=== PATIENT | female | born 1960 | race Caucasian/White ===

== ENCOUNTER 2019-12-09 14:06 | Outpatient (CLI) | payer BC, SELFPAY ==
--- NOTE | ~2019-12-09 | MM_ITS ---
EXAMINATION: MM screening analia BI w santhosh HISTORY: Screening TECHNIQUE: Craniocaudal and mediolateral oblique 3-D tomosynthesis images were obtained and synthetic 2-D images were generated. CAD analysis was submitted and interpreted. COMPARISON: Comparison to multiple prior studies sequentially, with oldest reviewed study dated 02/02. BREAST PARENCHYMAL COMPOSITION: The breasts are heterogeneously dense, which may obscure small masses . FINDINGS: There is no evidence of suspicious mass, calcification, or architectural distortion to sugg est malignancy in either breast. There has been no suspicious interval change. IMPRESSION: 1. No mammographic evidence of malignancy. 2. Recommend routine screening mammography in one year. BI-RADS Category 1: Negative Reviewed, dictated and finalized at location A.
== END 2019-12-09 14:07 | disposition home or self-care (01) ==
PROVIDERS: PCP Internal Medicine; Visit Provider Obstetrics & Gynecology
DX: Z12.31 Encounter for screening mammogram for malignant neoplasm of breast (principal)
CPT/HCPCS: 77063; 77067

== ENCOUNTER 2020-02-20 08:17 | Outpatient (CLI) | payer BC, SELFPAY ==
[2020-02-20 08:47] LABS: Eosinophils Absolute Auto 0.1 K/mm3 (0-0.3); Eosinophils Percent Auto 1.6 % (0-4.4); Hematocrit 39.5 % (37.0-47.0); Hemoglobin 12.4 g/dL (12.0-15.0); Immature Granulocyte Absolute 0.01 K/mm3 (0.00-0.031); Immature Granulocyte Percent A 0.2 % (0-0.5); Lymphocytes Absolute Auto 2.04 K/mm3 (0.9-3.2); Lymphocytes Percent Auto 37.2 % (18.3-44.2); Mean Corpuscular HGB Conc 31.4 g/dl (32-36); Mean Corpuscular Hemoglobin 27.2 pg (26-34); Mean Corpuscular Volume 86.6 fl (80-100); Mean Platelet Volume 10.3 fl (7.4-10.4); Monocytes Absolute Auto 0.4 K/mm3 (0.1-0.6); Monocytes Percent Auto 7.3 % (2.6-8.5); Neutrophils Absolute Auto 2.9 K/mm3 (1.3-6.7); Neutrophils Percent Auto 53.7 % (45.5-73.1); Platelet Count Result 231 k/mm3 (150-375); Red Blood Count 4.56 M/mm3 (4.2-5.4); Red Cell Distribution Width 13.9 % (11.5-14.5); White Blood Count 5.5 K/mm3 (4.5-10.0)
[2020-02-20 08:57] LABS: Alanine Aminotransferase 18 U/L (4-35); Albumin Level 4.3 g/dL (3.5-5.1); Alkaline Phosphatase 71 U/L (38-126); Anion Gap 9 mmol/L (8-16); Aspartate Amino Transferase 28 U/L (14-36); Bilirubin,Total 0.8 mg/dL (0.2-1.3); Blood Urea Nitrogen 22 mg/dL (7-17); Calcium 9.3 mg/dL (8.4-10.2); Carbon Dioxide 25 mmol/L (22-30); Chloride 105 mmol/L (98-107); Cholesterol 204 mg/dL (0-200); Estimated Glomerular Filt Rate > 60; Glucose 110 mg/dL (65-105); HDL Direct 65 mg/dL; Potassium 4.4 mmol/L (3.4-5.0); Sodium 139 mmol/L (137-145); Triglycerides 123 mg/dL (<150)
[2020-02-20 09:07] LABS: LDL Cholesterol Direct 103 mg/dL
[2020-02-20 09:29] LABS: Thyroid Stimulating Hormone 0.468 uIU/mL (0.465-4.680)
[2020-02-20 09:33] LABS: Free T4 Free Thyroxine 1.13 ng/mL (0.78-2.19)
== END 2020-02-20 08:18 | disposition home or self-care (01) ==
PROVIDERS: PCP Internal Medicine; Visit Provider Internal Medicine
DX: Z00.00 Encounter for general adult medical examination without abnormal findings (principal); R53.83 Other fatigue; E03.9 Hypothyroidism, unspecified
CPT/HCPCS: 36415; 80053; 80061; 82607; 82746; 84439; 84443; 85025

== ENCOUNTER 2020-07-06 14:45 | Outpatient (CLI) | payer OTHER, SELFPAY | END 2020-07-06 14:46 | disposition home or self-care (01) | LOC: ANHCOVIDVC 14:45 | PROVIDERS: PCP Internal Medicine | DX: Z23 Encounter for immunization (principal) | CPT/HCPCS: 0001A; 91300 ==

== ENCOUNTER 2020-07-27 14:42 | Outpatient (CLI) | payer OTHER, SELFPAY | END 2020-07-27 14:43 | disposition home or self-care (01) | LOC: ANHCOVIDVC 14:43 | PROVIDERS: PCP Internal Medicine | DX: Z23 Encounter for immunization (principal) | CPT/HCPCS: 0002A; 91300 ==

== ENCOUNTER 2021-01-04 08:08 | Outpatient (CLI) | payer OTHER, SELFPAY ==
--- NOTE | ~2021-01-04 | MM_ITS ---
EXAMINATION: MM screening analia BI w santhosh HISTORY: Screening TECHNIQUE: Craniocaudal and mediolateral oblique 3-D tomosynthesis images were obtained and synthetic 2-D images were generated. CAD analysis was submitted and interpreted. COMPARISON: Comparison to multiple prior studies sequentially, with oldest reviewed study dated 02/02. BREAST PARENCHYMAL COMPOSITION: The breasts are heterogeneously dense, which may obscure small masses . FINDINGS: There is no evidence of suspicious mass, calcification, or architectural distortion to sugg est malignancy in either breast. There has been no suspicious interval change. IMPRESSION: 1. No mammographic evidence of malignancy. 2. Recommend routine screening mammography in one year. BI-RADS Category 1: Negative Reviewed, dictated and finalized at location A.
[2021-01-04 08:35] LABS: Basophils Percent Auto 0.2 % (0.2-1.2); Eosinophils Absolute Auto 0.1 K/mm3 (0-0.3); Eosinophils Percent Auto 1.8 % (0-4.4); Hematocrit 41.4 % (37.0-47.0); Hemoglobin 13.1 g/dL (12.0-15.0); Immature Granulocyte Absolute 0.02 K/mm3 (0.00-0.031); Immature Granulocyte Percent A 0.4 % (0-0.5); Lymphocytes Absolute Auto 2.17 K/mm3 (0.9-3.2); Lymphocytes Percent Auto 39.2 % (18.3-44.2); Mean Corpuscular HGB Conc 31.6 g/dl (32-36); Mean Corpuscular Hemoglobin 27.2 pg (26-34); Mean Corpuscular Volume 86.1 fl (80-100); Mean Platelet Volume 9.4 fl (7.4-10.4); Monocytes Absolute Auto 0.4 K/mm3 (0.1-0.6); Neutrophils Absolute Auto 2.9 K/mm3 (1.3-6.7); Neutrophils Percent Auto 51.4 % (45.5-73.1); Platelet Count Result 191 k/mm3 (150-375); Red Blood Count 4.81 M/mm3 (4.2-5.4); Red Cell Distribution Width 15.1 % (11.5-14.5); White Blood Count 5.5 K/mm3 (4.5-10.0)
[2021-01-04 09:02] LABS: Alanine Aminotransferase 21 U/L (4-35); Albumin Level 4.6 g/dL (3.5-5.1); Alkaline Phosphatase 76 U/L (38-126); Anion Gap 8 mmol/L (8-16); Aspartate Amino Transferase 28 U/L (14-36); Blood Urea Nitrogen 17 mg/dL (7-17); Calcium 9.5 mg/dL (8.4-10.2); Carbon Dioxide 26 mmol/L (22-30); Chloride 103 mmol/L (98-107); Cholesterol 246 mg/dL (0-200); Estimated Glomerular Filt Rate > 60; Glucose 112 mg/dL (65-110); HDL Direct 76 mg/dL; Sodium 137 mmol/L (137-145); Triglycerides 56 mg/dL (<150)
[2021-01-04 09:06] LABS: Hemoglobin A1C 5.8 % (<5.7)
[2021-01-04 09:14] LABS: LDL Cholesterol Direct 117 mg/dL
[2021-01-04 09:32] LABS: Thyroid Stimulating Hormone 0.603 uIU/mL (0.465-4.680)
[2021-01-04 10:13] LABS: Free T4 Free Thyroxine 1.18 ng/mL (0.78-2.19)
[2021-01-04 10:14] LABS: Folic Acid > 20.0 ng/mL (2.76->20)
== END 2021-01-04 08:09 | disposition home or self-care (01) ==
LOC: ANHIMG 08:09
PROVIDERS: PCP Internal Medicine; Visit Provider Internal Medicine
DX: Z12.31 Encounter for screening mammogram for malignant neoplasm of breast (principal); E03.9 Hypothyroidism, unspecified; R73.9 Hyperglycemia, unspecified; R53.83 Other fatigue; E78.5 Hyperlipidemia, unspecified
CPT/HCPCS: 36415; 77063; 77067; 80053; 80061; 82607; 82746; 83036; 84439; 84443; 85025

== ENCOUNTER 2022-01-16 07:35 | Outpatient (CLI) | payer OTHER, SELFPAY ==
[2022-01-16 08:45] LABS: Basophils Percent Auto 0.2 % (0.2-1.2); Eosinophils Absolute Auto 0.1 K/mm3 (0-0.3); Eosinophils Percent Auto 1.1 % (0-4.4); Hematocrit 41.1 % (37.0-47.0); Hemoglobin 13.2 g/dL (12.0-15.0); Lymphocytes Absolute Auto 2.27 K/mm3 (0.9-3.2); Mean Corpuscular HGB Conc 32.1 g/dl (32-36); Mean Corpuscular Hemoglobin 25.8 pg (26-34); Mean Corpuscular Volume 80.4 fl (80-100); Mean Platelet Volume 10.4 fl (7.4-10.4); Monocytes Absolute Auto 0.4 K/mm3 (0.1-0.6); Monocytes Percent Auto 7.6 % (2.6-8.5); Neutrophils Absolute Auto 2.9 K/mm3 (1.3-6.7); Neutrophils Percent Auto 51.1 % (45.5-73.1); Platelet Count Result 221 k/mm3 (150-375); Red Blood Count 5.11 M/mm3 (4.2-5.4); White Blood Count 5.7 K/mm3 (4.5-10.0)
[2022-01-16 10:20] LABS: Hemoglobin A1C 5.5 % (<5.7)
[2022-01-16 10:25] LABS: Alanine Aminotransferase 21 U/L (6-35); Albumin Level 4.7 g/dL (3.5-5.1); Alkaline Phosphatase 59 U/L (38-126); Anion Gap 11 mmol/L (8-16); Aspartate Amino Transferase 27 U/L (14-36); Bilirubin,Total 0.9 mg/dL (0.2-1.3); Blood Urea Nitrogen 17 mg/dL (7-17); Calcium 9.7 mg/dL (8.4-10.2); Carbon Dioxide 28 mmol/L (22-30); Chloride 102 mmol/L (98-107); Cholesterol 183 mg/dL (0-200); Estimated Glomerular Filt Rate > 60; Glucose 110 mg/dL (65-110); HDL Direct 61 mg/dL; Potassium 4.1 mmol/L (3.4-5.0); Sodium 141 mmol/L (137-145); Triglycerides 66 mg/dL (<150)
[2022-01-16 10:41] LABS: LDL Cholesterol Direct 84 mg/dL
[2022-01-16 10:53] LABS: Thyroid Stimulating Hormone 0.184 uIU/mL (0.465-4.680)
[2022-01-16 11:08] LABS: Free T4 Free Thyroxine 1.81 ng/mL (0.78-2.19)
[2022-01-16 11:33] LABS: Folic Acid > 20.0 ng/mL (2.76->20)
== END 2022-01-16 07:36 | disposition home or self-care (01) ==
LOC: ANHLAB 07:36
PROVIDERS: PCP Internal Medicine; Visit Provider Internal Medicine
DX: E78.5 Hyperlipidemia, unspecified (principal); R73.9 Hyperglycemia, unspecified; E03.9 Hypothyroidism, unspecified; R53.83 Other fatigue
CPT/HCPCS: 36415; 80053; 80061; 82607; 82746; 83036; 84439; 84443; 85025

== ENCOUNTER 2022-02-25 08:18 | Outpatient (CLI) | payer OTHER, SELFPAY ==
--- NOTE | ~2022-02-25 | MM_ITS ---
EXAMINATION: MM screening analia BI w santhosh HISTORY: Screening mammogram TECHNIQUE: Craniocaudal and mediolateral oblique 3-D tomosynthesis images were obtained and synthetic 2-D images were generated. CAD analysis was submitted and interpreted. COMPARISON: 01/04/2021, 12/09/2019, 08/13/2018 BREAST PARENCHYMAL COMPOSITION: The breasts are heterogeneously dense, which may obscure small masses . FINDINGS: RIGHT BREAST: No suspicious mass, calcification, or architectural distortion are identified to sugges t malignancy. There has been no suspicious interval change. LEFT BREAST: There is a possible mass in the subareolar aspect of the left breast. IMPRESSION: 1. Possible left breast mass 2. Additional mammographic views and possible breast ultrasound are recommended. BI-RADS Category 0: Incomplete: Needs additional imaging evaluation. Reviewed, dictated and finalized at location A. IMPRESSION: 1. Possible left breast mass 2. Additional mammographic views and possible breast ultrasound are recommended . BI-RADS Category 0: Incomplete: Needs additional imaging evaluation.
== END 2022-02-25 08:19 | disposition home or self-care (01) ==
PROVIDERS: PCP Internal Medicine; Visit Provider Obstetrics & Gynecology
DX: Z12.31 Encounter for screening mammogram for malignant neoplasm of breast (principal); R92.8 Other abnormal and inconclusive findings on diagnostic imaging of breast
CPT/HCPCS: 77063; 77067

== ENCOUNTER 2022-03-18 10:34 | Outpatient (CLI) | payer OTHER, SELFPAY ==
--- NOTE | ~2022-03-18 | MMUS_ITS ---
EXAMINATION: MM diagnostic analia LT w santhosh, US breast LT complete HISTORY: Follow-up left breast asymmetry/possible mass TECHNIQUE: Additional 3-D tomosynthesis images of the left breast were performed and synthetic 2-D im ages were generated. CAD analysis was submitted and interpreted. High resolution complete left breast ultrasound was performed. COMPARISON: 02/25/2022, 01/04/2021 and 12/08/2020 BREAST PARENCHYMAL COMPOSITION: The breasts are heterogeneously dense, which may obscure small masses FINDINGS: MAMMOGRAPHIC FINDINGS: No discrete mass, architectural distortion or suspicious calcifications are identified in the left br east. ULTRASOUND: Complete left breast US of all 4 quadrants of the breasts and retroareolar region was reviewed: At 12 :00, 2 cm from the nipple there is an oval isoechoic mass measuring 7 x 4 x 7 mm without internal vas cularity or posterior features. At 7:00, 5 cm from the nipple, there is a hypoechoic oval mass with l ow level internal echoes, circumscribed margins, no internal vascularity, parallel orientation and no posterior features. IMPRESSION: 1. Isoechoic solid appearing mass of the left breast at 12:00, 2 cm from the nipple. Probable benign mass at 7:00, 5 cm from the nipple measuring 5 mm. 2. Ultrasound-guided left breast biopsy of isoechoic mass at 12:00, 2 cm from the nipple recommended. Six-month follow-up of hypoechoic mass at 7:00 recommended. BI-RADS category 4, suspicious findings. Reviewed, dictated and finalized at location A. EATION THERAPIST IMPRESSION: 1. Isoechoic solid appearing mass of the left breast at 12:00, 2 cm from the ni pple. Probable benign mass at 7:00, 5 cm from the nipple measuring 5 mm. 2. Ultrasound-guided left breast biopsy of isoechoic mass at 12:00, 2 cm from t he nipple recommended. Six-month follow-up of hypoechoic mass at 7:00 recommend ed. BI-RADS category 4, suspicious findings.
[2022-03-18 11:25] LABS: Free T4 Free Thyroxine 1.08 ng/mL (0.78-2.19)
== END 2022-03-18 10:35 | disposition home or self-care (01) ==
LOC: ANHIMG 10:34
PROVIDERS: PCP Internal Medicine; Visit Provider Obstetrics & Gynecology
DX: E03.9 Hypothyroidism, unspecified (principal); N63.20 Unspecified lump in the left breast, unspecified quadrant; R92.8 Other abnormal and inconclusive findings on diagnostic imaging of breast
CPT/HCPCS: 36415; 76641; 77061; 77065; 84439; 84443; G0279

== ENCOUNTER 2022-12-26 07:34 | Outpatient (CLI) | payer OTHER, SELFPAY ==
[2022-12-26 07:49] LABS: Basophils Percent Auto 0.2 % (0.2-1.2); Eosinophils Absolute Auto 0.1 K/mm3 (0-0.3); Eosinophils Percent Auto 2.2 % (0-4.4); Hematocrit 38.1 % (37.0-47.0); Hemoglobin 11.7 g/dL (12.0-15.0); Immature Granulocyte Absolute 0.02 K/mm3 (0.00-0.031); Immature Granulocyte Percent A 0.4 % (0-0.5); Lymphocytes Absolute Auto 1.93 K/mm3 (0.9-3.2); Lymphocytes Percent Auto 38.3 % (18.3-44.2); Mean Corpuscular HGB Conc 30.7 g/dl (32-36); Mean Corpuscular Hemoglobin 26.4 pg (26-34); Mean Platelet Volume 9.4 fl (7.4-10.4); Monocytes Absolute Auto 0.4 K/mm3 (0.1-0.6); Monocytes Percent Auto 6.9 % (2.6-8.5); Neutrophils Absolute Auto 2.6 K/mm3 (1.3-6.7); Platelet Count Result 215 k/mm3 (150-375); Red Blood Count 4.43 M/mm3 (4.2-5.4); Red Cell Distribution Width 15.2 % (11.5-14.5)
[2022-12-26 07:59] LABS: Alanine Aminotransferase 24 U/L (6-35); Albumin Level 4.4 g/dL (3.5-5.1); Alkaline Phosphatase 61 U/L (38-126); Anion Gap 3 mmol/L (8-16); Aspartate Amino Transferase 30 U/L (14-36); Bilirubin,Total 0.9 mg/dL (0.2-1.3); Blood Urea Nitrogen 19 mg/dL (7-17); Calcium 9.1 mg/dL (8.4-10.2); Carbon Dioxide 32 mmol/L (22-30); Chloride 102 mmol/L (98-107); Cholesterol 249 mg/dL (0-200); Estimated Glomerular Filt Rate > 60; Glucose 102 mg/dL (65-110); HDL Direct 85 mg/dL; Potassium 4.2 mmol/L (3.4-5.0); Sodium 137 mmol/L (137-145); Triglycerides 73 mg/dL (<150)
[2022-12-26 08:23] LABS: LDL Cholesterol Direct 120 mg/dL
[2022-12-26 09:00] LABS: Free T4 Free Thyroxine 1.27 ng/mL (0.78-2.19)
[2022-12-26 09:10] LABS: Folic Acid > 20.0 ng/mL (2.76->20)
[2022-12-26 12:09] LABS: Hemoglobin A1C 5.5 % (<5.7)
== END 2022-12-26 07:35 | disposition home or self-care (01) ==
PROVIDERS: PCP Internal Medicine; Visit Provider Internal Medicine
DX: E03.9 Hypothyroidism, unspecified (principal); E78.5 Hyperlipidemia, unspecified; R53.83 Other fatigue; R73.9 Hyperglycemia, unspecified
CPT/HCPCS: 36415; 80053; 80061; 82607; 82746; 83036; 84439; 84443; 85025

== ENCOUNTER 2024-03-01 08:27 | Outpatient (CLI) | payer OTHER, SELFPAY ==
[2024-03-01 09:30] LABS: Hematocrit 42.8 % (37.0-47.0); Hemoglobin 13.6 g/dL (12.0-15.0); Mean Corpuscular HGB Conc 31.8 g/dl (32-36); Mean Corpuscular Hemoglobin 28.5 pg (26-34); Mean Corpuscular Volume 89.5 fl (80-100); Mean Platelet Volume 9.8 fl (7.4-10.4); Platelet Count Result 221 k/mm3 (150-375); Red Blood Count 4.78 M/mm3 (4.2-5.4); Red Cell Distribution Width 12.4 % (11.5-14.5); White Blood Count 6.2 K/mm3 (4.5-10.0)
[2024-03-01 09:55] LABS: Alanine Aminotransferase 20 U/L (6-35); Albumin Level 4.6 g/dL (3.5-5.1); Alkaline Phosphatase 79 U/L (38-126); Anion Gap 7 mmol/L (4-12); Aspartate Amino Transferase 25 U/L (14-36); Bilirubin,Total 1.1 mg/dL (0.2-1.3); Blood Urea Nitrogen 21 mg/dL (7-17); Calcium 9.2 mg/dL (8.4-10.2); Carbon Dioxide 28 mmol/L (22-30); Chloride 103 mmol/L (98-107); Cholesterol 243 mg/dL (0-200); Estimated Glomerular Filt Rate > 60; Glucose 99 mg/dL (65-110); HDL Direct 73 mg/dL; Hemoglobin A1C 5.8 % (<5.7); Potassium 4.2 mmol/L (3.4-5.0); Sodium 138 mmol/L (137-145); Triglycerides 99 mg/dL (<150)
[2024-03-01 10:06] LABS: LDL Cholesterol Direct 114 mg/dL
[2024-03-01 10:27] LABS: Free T4 Free Thyroxine 1.16 ng/mL (0.78-2.19)
== END 2024-03-01 08:28 | disposition home or self-care (01) ==
LOC: ANHLAB 08:29
PROVIDERS: PCP Nurse Practitioner; Visit Provider Nurse Practitioner
DX: E03.9 Hypothyroidism, unspecified (principal); E78.5 Hyperlipidemia, unspecified; R73.9 Hyperglycemia, unspecified; Z79.899 Other long term (current) drug therapy
CPT/HCPCS: 36415; 80053; 80061; 83036; 84439; 84443; 85027

== ENCOUNTER 2025-03-07 14:39 | Outpatient (CLI) | payer OTHER, SELFPAY ==
--- OUTSIDE RECORDS SUMMARY | 2017-05-12 | XMS_ITS | Encounter Summary ---
Author Organization [facility] Healthcare Address [address] [place] [address] Care Team Providers Care Synthetic Filament Extruder Name Role Phone Unavailable Primary Care Provider Unavailabl e Reason for Visit * Diagnostic Imaging (Routine) - Closed Specialty Diagnoses / Procedures Referred By Reji harrell Referred To Contact Procedures Breast Imaging Screening Outside Reference Jhon Rangel NP Phone: tel: fax: Referral ID Status Reason Start Date Expiration Date Visits Re quested Visits Authorized [id number] Closed 03/25/2022 04/24/2023 1 1 Encounter Details Date Type Department Care Team (Late st Contact Info) Description 05/12/2017 Hospital Encounter [facility] [address] [place] [address] [phone] Social History Tobacco Use Types Packs/Day Years Used Date Smoking Tobacco: Never Smokeless Tobacco: Never AUDIT-C Answer Date Recorded Q1: How often do you have a drink containing alc ohol? 2-4 times a month 04/22/2022 Average Number of Drinks Not on file 022 Frequency of Binge Drinking Not on file 04/04 Comments Unknown Sex and Gender Information Value Date Recorded Sex Assigned at Not on file Legal Sex Female 4:32 AM ASSOCIATE ACCOUNT EXECUTIVE Gender Identity Female 03/20/2022 8:59 AM ASSOCIATE ACCOUNT EXECUTIVE Sexual Orientation Straight 05/31/2021 9: 25 AM ASSOCIATE ACCOUNT EXECUTIVE documented as of this encounter Functional Status documented as of this encounter Plan of Treatment Not on file documented as of this encounter Procedures Procedure Name Priority Date/Time Associated Diagnosis Comments BREAST IMAGING MG SCREENING OUTSIDE REFERENCE Routine 05/12/2017 12:00 AM ASSOCIATE ACCOUNT EXECUTIVE documented in this encounter Results * Breast Imaging Screening Outside Reference (05/12/2017 12:00 AM ASSOCIATE ACCOUNT EXECUTIVE) Impressions [facility] - 03/25/2022 10:49 AM ASSOCIATE ACCOUNT EXECUTIVE These images are for Reference purposes only and have not been reviewed by [facility] Radiology. There will be no report generated by a [facility] Radiologist. Narrative [facility] - 03/25/2022 10:49 AM ASSOCIATE ACCOUNT EXECUTIVE EXAMINATION: Images For Reference Purposes Only us Jhon Rangel NP IMG MAMMO PROCEDURES Final Result [facility] documented in this encounter Visit Diagnoses Not on filedocumented in this encounter
--- OUTSIDE RECORDS SUMMARY | 2018-08-12 23:00 | XMS_ITS | Encounter Summary ---
Author Organization [facility] Healthcare Address [address] [place] [address] Care Team Providers Care Assistant Reading Teacher Name Role Phone Unavailable Primary Care Provider Unavailabl e Reason for Visit * Diagnostic Imaging (Routine) - Closed Specialty Diagnoses / Procedures Referred By Reji harrell Referred To Contact Procedures Breast Imaging Screening Outside Reference Jhon Rangel NP Phone: tel: fax: Referral ID Status Reason Start Date Expiration Date Visits Re quested Visits Authorized [id number] Closed 03/25/2022 04/24/2023 1 1 Encounter Details Date Type Department Care Team (Late st Contact Info) Description 08/13/2018 Hospital Encounter [facility]) [address] [place] [address] [phone] Social History Tobacco Use Types Packs/Day Years [...] on file Legal Sex Female 4:32 AM SIZING SPRAYER Gender Identity Female 03/20/2022 8:59 AM SIZING SPRAYER Sexual Orientation Straight 05/31/2021 9: 25 AM SIZING SPRAYER documented as of this encounter Functional Status documented as of this encounter Plan of Treatment Not on file documented as of this encounter Procedures Procedure Name Priority Date/Time Associated Diagnosis Comments BREAST IMAGING MG SCREENING OUTSIDE REFERENCE Routine 08/13/2018 12:00 AM CDT documented in this encounter Results * Breast Imaging Screening Outside Reference (08/13/2018 12:00 AM CDT) Impressions [facility] - 03/25/2022 10:49 AM SIZING SPRAYER These images are for Reference purposes only and have not been reviewed by [facility] Radiology. There will be no report generated by a [facility] Radiologist. Narrative [facility] - 03/25/2022 10:49 AM SIZING SPRAYER EXAMINATION: Images For Reference Purposes Only us Jhon Rangel NP IMG MAMMO PROCEDURES Final Result [facility] documented in this encounter Visit Diagnoses Not on filedocumented in this encounter
--- OUTSIDE RECORDS SUMMARY | 2019-12-08 23:00 | XMS_ITS | Encounter Summary ---
Author Organization [facility] Healthcare Address [address] [place] [address] Care Team Providers Care Zipper Cutter Name Role Phone Unavailable Primary Care Provider Unavailabl e Reason for Visit * Diagnostic Imaging (Routine) - Closed Specialty Diagnoses / Procedures Referred By Reji harrell Referred To Contact Procedures Breast Imaging Screening Outside Reference Jhon Rangel NP Phone: tel: fax: Referral ID Status Reason Start Date Expiration Date Visits Re quested Visits Authorized [id number] Closed 03/25/2022 04/24/2023 1 1 Encounter Details Date Type Department Care Team (Late st Contact Info) Description 12/09/2019 Hospital Encounter [facility] [address] [place] [address] [phone] Social History Tobacco Use Types Packs/Day Years [...] on file Legal Sex Female 4:32 AM WINCH STRIPPER Gender Identity Female 03/20/2022 8:59 AM WINCH STRIPPER Sexual Orientation Straight 05/31/2021 9: 25 AM WINCH STRIPPER documented as of this encounter Functional Status documented as of this encounter Plan of Treatment Not on file documented as of this encounter Procedures Procedure Name Priority Date/Time Associated Diagnosis Comments BREAST IMAGING MG SCREENING OUTSIDE REFERENCE Routine 12/09/2019 12:00 AM CDT documented in this encounter Results * Breast Imaging Screening Outside Reference (12/09/2019 12:00 AM CDT) Impressions [facility] - 03/25/2022 10:50 AM WINCH STRIPPER These images are for Reference purposes only and have not been reviewed by [facility] Radiology. There will be no report generated by a [facility] Radiologist. Narrative [facility] - 03/25/2022 10:50 AM WINCH STRIPPER EXAMINATION: Images For Reference Purposes Only us Jhon Rangel NP IMG MAMMO PROCEDURES Final Result [facility] documented in this encounter Visit Diagnoses Not on filedocumented in this encounter
--- NOTE | ~2025-03-07 | DEXA_ITS ---
Bone Density Report Name: MARILEE BRITO Age: 64 Sex: Female Ethnicity: White Date of : 1960 Indication: postmenopausal; screening for osteoporosis; Referring Provider: CAROLINA TALAVERA Study: Bone densitometry was performed. Exam Date: March 07, 2025 Accession number: [id number] Bone Density: Region BMD T-score Z-score Classification AP Spine(L1-L4) 0.951 -0.9 0.7 Normal Femoral Neck (Left) 0.781 -0.6 0.8 Normal Total Hip (Left) 0.950 0.1 1.2 Normal Femoral Neck (Right) 0.543 -2.8 -1.4 Osteoporosis Total Hip (Right) 0.680 -2.1 -1.1 Osteopenia Total Hip Mean 0.815 -1.0 0.1 Normal World Health Organization criteria for BMD impression classify patients as: Normal (T-score at or above -1.0), Osteopenia (T-score between -1.0 and -2.5), or Osteoporosis (T-score at or below -2.5). 10-year Fracture Risk: FRAX not reported because: Some T-score for Spine Total or Hip Total or Femoral Neck at or below -2.5 Impression: The patient has osteoporosis, based on the Right Femoral Neck T-score. Discussion: INCREASED RISK OF FRACTURE. BONE DENSITY IS UNDESIRABLY LOW AT ONE OR MORE SKELETAL SITES, CONSISTENT WITH POSTMENOPAUSAL OSTEOPOROSIS. This patient's lowest T-score meets the World Health Organization's (WHO) criteria for osteoporosis at one or more sites (T-score -2.5 or below). In untreated patients, the risk of osteoporotic fracture increases approximately two-fold for each 1.0 SD decrease in T-score. Low bone density is not the only risk factor for fracture; also consider factors such as patient's age, frailty or poor health, risk of falling, risk of injury, previous osteoporotic fracture, family history of osteoporosis, cigarette smoking, low body weight, etc. Not everyone with low bone mineral density has osteoporosis; osteomalacia and other metabolic bone disorders should also be considered. Patients who have osteoporosis should be evaluated for specific diseases and conditions (secondary causes) that may cause or contribute to bone loss. The [place] [employer]ocrinologists (AACE) and National Osteoporosis Foundation (NOF) recommend pharmacologic intervention for all postmenopausal women whose T-score is in this range. The patient should follow a healthful lifestyle (good nutrition with adequate calcium and vitamin D, and appropriate weight-bearing exercise). Follow-Up: Consider a repeat BMD and Vertebral Fracture Assessment (VFA) exam in 2 years or sooner if medically necessary, to reassess this patient's status. Reported by: ERWIN on 03/07/2025 3:31:00 PM. Reviewed, dictated and finalized at location A.
--- OUTSIDE RECORDS SUMMARY | 2025-03-07 16:11 | XMS_ITS | Clinical Summary ---
Author Organization [facility] Address [address] [place] [address] Care Team Providers Care Miter Saw Operator Name Role Phone Unavailable Primary Care Provider Unavailabl e Social History Tobacco Use Types Packs/Day Years Used Date Smoking Tobacco: Never Assessed Comments Unknown Sex and Gender Information Value Date Recorded Sex Assigned at Not on file Legal Sex Female 1:58 PM CDT Gender Identity Not on file Sexual Orientation Not on file Plan of Treatment Health Maintenance Due Date Last Done Comments Cervical Cancer Screening Pa p Smear (Age 30 to 64) Every 3 Years 1962 Colorectal Cancer Screening Colonoscopy (10 Years) 1962 Annual Physical 1965 Hepatitis C 1980 DTaP, Tdap and Td Vaccines ( 1 - Tdap) 1981 Cervical Cancer Screening Pa p with HPV Testing (Age 30 to 64) Every 5 Years 1992 Cervical Cancer Screening with HPV 1992 Mammogram Screening 2002 Pneumococcal Vaccine: 50+ Ye ars (1 of 1 - PCV) 2012 Zoster Vaccines (1 of 2) 2012 COVID-19 Vaccine (2024-2 6 season) 2025 Influenza Adult (#1) 2025 RSV Immunization or 60+ Years (1 - 1-dose 75+ series) 2037 Hepatitis A Vaccines Aged Out No long er eligible based on patient's age to complete this topic Meningococcal B Vaccine Aged Out No l onger eligible based on patient's age to complete this topic Meningococcal Vaccine Aged Out No gorge rudy eligible based on patient's age to complete this topic RSV Immunizations Under 20 Months Aged Out No longer eligible based on patient's age to complete this topic
--- OUTSIDE RECORDS SUMMARY | 2025-03-07 16:11 | XMS_ITS | Clinical Summary ---
Author Organization [facility] Address [facility] [place] [address] Care Team Providers Care Soap Tender Name Role Phone Tio Kumari MD Primary Care Provider [phone] Lb Jennings MD Unavailable [phone] Allergies No known active allergies Medications levothyroxine (SYNTHROID) 112 mcg tablet levothyroxine 112 mcg tablet Active acetaminophen (TYLENOL ORAL) Take by mouth A ctive aspirin 325 mg enteric coated tablet Take 325 mg by mouth daily Active gabapentin (NEURONTIN) 300 mg capsule Take 300 mg by mouth daily Active levothyroxine (SYNTHROID) 100 mcg tablet Take 100 mcg by mouth daily 2 Active TURMERIC ORAL Take by mouth daily Active Active Problems Problem Noted Date Diagnosed Date Mass of left breast 05/07/2022 Surgical History Surgery Date Site/Laterality Comments ND TOTAL ABDOMINAL HYSTERECT W/WO RMVL TUBE OVARY Hysterectomy - uterine fibroid tumors (Added by TW Conv) CARPAL TUNNEL RELEASE APPENDECTOMY HIP ARTHROSCOPY W/ LABRAL REPAIR Medical History Medical History Date Comments Personal history of other en docrine, nutritional and metabolic disease History of hypothyro idism - (Added by TW Conv) Personal history of other di seases of the nervous system and sense organs History of periphe ral neuropathy - bilateral feet (Added by TW Conv) Personal history of other di seases of the digestive system History of irritable bowel s yndrome - (Added by TW Conv) Thyroid disease Arthritis Family History Medical History Relation Name Comments Ovarian cancer Mother Melanoma Mother's Sister Prostate cancer Paternal Grandfather Relation Name Status Comments Mother Mother's Sister Paternal Grandfather Social History Tobacco Use Types Packs/Day Years [...] on file Legal Sex Female 4:32 AM REGRINDER OPERATOR Gender Identity Female 03/20/2022 8:59 AM REGRINDER OPERATOR Sexual Orientation Straight 05/31/2021 9: 25 AM REGRINDER OPERATOR Last Filed Vital Signs Vital Sign Reading Time Taken Comments Blood Pressure 107/73 04/22/2022 9:10 AM REGRINDER OPERATOR Pulse 77 04/22/2022 9:10 AM REGRINDER OPERATOR Temperature 36.8 C (98.3 F) 04/22/2022 9:10 AM REGRINDER OPERATOR Respiratory Rate 20 04/22/2022 9:10 AM REGRINDER OPERATOR Oxygen Saturation 97% 04/22/2022 9:1 0 AM REGRINDER OPERATOR Inhaled Oxygen Concentration - - Weight 63.4 kg (139 lb 12.8 oz) 022 9:10 AM REGRINDER OPERATOR with shoes Height 162.6 cm (5' 4) 05/31/2021 10:5 7 AM REGRINDER OPERATOR Body Mass Index 24 05/31/2021 10:57 AM REGRINDER OPERATOR Plan of Treatment Health Maintenance Due Date Last Done Comments Breast Cancer Screening-Mammogram 1962 Cervical Cancer Screening 1962 Colon Cancer Screening-Colonoscopy 1962 Depression Screening 1962 Hepatitis C Screening 1962 Hepatitis B Screening 1980 Regular Well Visit/Exam 18-64 1980 Covid-19 Vaccine (2024-2 6 season) 2025 02/05/2021, 07/27/2020, 07/06/2020 Influenza Vaccine (#1) 2025 02/18/2020 DTaP/Tdap/Td Vaccine (2 - Td or Tdap) 02/26/2027 02/26/2017 Zoster Vaccine Completed 04/23/2020, 02/20/2020 Pneumococcal vaccine <65 Aged Out No longer eligible based on patient's age to complete this topic Insurance [facility] Care Teams Soap Tender Relationship Specialty Start Date End Date Tio Kumari MD [address] [place], [place] [id number] PCP - General Internal Medicine 03/14/21 Lb Jennings MD [address] [place] [address] Referring Physician Obstetrics and Gynecology 03/20/22
--- OUTSIDE RECORDS SUMMARY | 2025-03-07 16:11 | XMS_ITS | Clinical Summary ---
Author Organization [facility] Address [address] [place] [address] Care Team Providers Care Manager Culture Name Role Phone Unavailable Primary Care Provider Unavailabl e Source Comments [facility],non-owned Affiliates and Associated Physician Practices is amultiple site organization consisting of ambulatory clinics and hospital sitesin [place], [place], [place] and [place]. This disclosure is being madepursuant to the Care Everywhere program and may not contain all information available regarding this patient. Last updated 18.[facility] Encounters Date Type Department Care Team Description 02/23/2025 10:25 AM CDT - 02/23/2025 11:59 PM CDT Hospital Encounter [facility] [address] [place], [place] [address] [address] Lb Jennings MD Discharge Disposition: Home or Self Care 02/21/2025 1:31 PM CDT - 02/21/2025 11:59 PM CDT Hospital Encounter [facility] - Outside Imaging Discharge Disposition: Home or Self Care 02/21/2025 1:30 PM CDT Hospital Encounter [facility] - Outside Imaging Discharge Disposition: Home or Self Care 02/21/2025 1:29 PM CDT Hospital Encounter [facility] - Outside Imaging Discharge Disposition: Home or Self Care 02/21/2025 1:25 PM CDT - 02/21/2025 1:28 PM CDT Hospital Encounter [facility] - Outside Imaging Discharge Disposition: Home or Self Care from Last 3 Months Family History Medical History Relation Name Comments Cancer - Skin, Melanoma Maternal Aunt Janessa Cancer - Ovarian Mother Aster Cancer - Prostate Other David paternal g randfather Cancer - Breast Neg Hx Relation Name Status Comments Maternal Aunt Janessa Mother Aster Other David Social History Tobacco Use Types Packs/Day Years Used Date Smoking Tobacco: Never Assessed Comments No Sex and Gender Information Value Date Recorded Sex Assigned at Female 03/31/2022 2:15 PM EXPORT DOCUMENTS CLERK Legal Sex Female 6:28 AM EXPORT DOCUMENTS CLERK Gender Identity Female 03/31/2022 2:15 PM EXPORT DOCUMENTS CLERK Sexual Orientation Straight 03/31/2022 2: 15 PM EXPORT DOCUMENTS CLERK Last Filed Vital Signs Vital Sign Reading Time Taken Comments Blood Pressure 119/79 02/26/2017 11:00 PM CDT Pulse 82 02/26/2017 11:00 PM CDT Temperature 37.8 C (100 F) 02/26/2017 6:39 PM CDT Respiratory Rate 14 02/26/2017 11:00 PM CDT Oxygen Saturation 97% 02/26/2017 11:00 PM CDT Inhaled Oxygen Concentration - - Weight 72.6 kg (160 lb) 02/23/2025 10:36 AM CDT Height 162.6 cm (5' 4) 02/23/2025 10:36 AM CDT Body Mass Index 27.46 02/23/2025 10:36 AM CDT Plan of Treatment Health Maintenance Due Date Last Done Comments COLON MONITORING 1962 COLONOSCOPY - COLON CA SCREENING 1962 CT COLONOGRAPHY - COLON CA SCREENING 1962 FIT - COLON CA SCREENING 1962 FLEX SIG - COLON CA SCREENING 1962 LIPID TESTING 1962 HIV SCREENING 1977 HEPATITIS C SCREENING 07/10/1980 DTAP/TDAP/TD VACCINES (1 - Tdap) 1981 PAP SMEAR 07/16/1983 PNEUMOCOCCAL VACCINE 50+ (1 of 1 - PCV) 2012 ZOSTER VACCINE (1 of 2) 2012 DEPRESSION SCREENING 05/04/2024 COVID-19 VACCINE (3 - 2024-2 6 season) 2025 07/27/2020, 07/06/2020 INFLUENZA VACCINE (#1) 2025 02/18/2020 MAMMOGRAM 02/23/2027 02/23/2025, 02/18/2024, 02/12/2023 COLOGUARD (AGES 45-75) - COL ON CA SCREENING 10/22/2027 10/21/2024 Colorectal Cancer Screening 10/22/2027 Respiratory Syncytial Virus (RSV) Vaccine Pt: or over 60 yrs (1 - 1-dose 75+ series) 2037 HEPATITIS B VACCINE Aged Out No longe r eligible based on patient's age to complete this topic HIB VACCINE Aged Out No longer eligi ble based on patient's age to complete this topic HPV VACCINE Aged Out No longer eligi ble based on patient's age to complete this topic MENINGOCOCCAL (Group B) VACCINE SHARED DECISION-MAKING Aged Out No longer eligible based on patient's age to complete this topic MENINGOCOCCAL GROUPS A/C/Y/W VACCINE Aged Out No longer eligible b ased on patient's age to complete this topic Procedures Procedure Name Priority Date/Time Associated Diagnosis Comments MAMMO BILAT SCREENING W GEMMA Routine 02/23/2025 10:47 AM CDT Encounter for screening mammogram for malignant neoplasm of breast from Last 3 Months Results * Mammo Bilat Screening W Gemma (02/23/2025 10:47 AM CDT) Anatomical Region Laterality Modality Breast Bilateral Mammography 02/23/2025 11:3 4 AM CDT Impressions 02/23/2025 11:36 AM CDT IMPRESSION: No mammographic evidence of malignancy in either breast. ASSESSMENT: BI-RADS CATEGORY 1: NEGATIVE RECOMMENDATION: Bilateral screening mammogram in one year. Thank you for allowing us to participate in the care of your patient. [facility] utilizes Personal Estate Manager as a reminder system to notify patients of their next recommended mammogram. > Interpreting Provider: Brooke Zhang MD on 02/23/2025 11:36 AM Narrative 02/23/2025 11:36 AM CDT EXAMINATION: Digital screening mammogram. Low-dose full-field digital breast tomosynthesis examination was performed with synthetic 2D images. Computer assisted detection was utilized. DATE: 02/23/2025 10:48 AM PRIOR: 02/18/2024 and prior mammograms dating back to 2020. BREAST PARENCHYMAL COMPOSITION: Category D: The breasts are extremely dense which lowers the sensitivity of mammography. FINDINGS: No suspicious masses, areas of architectural distortion or microcalcifications are evident on synthetic 2D mammogram or tomosynthesis images. There has been no significant interval change since the prior examination. us Lb Jennings MD MAMMO ORDERABLES Final Result from Last 3 Months Insurance
--- OUTSIDE RECORDS SUMMARY | 2025-03-07 16:11 | XMS_ITS | Encounter Summary ---
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 Name Role Phone Unavailable Primary Care Provider Unavailabl e Encounter Details Date Type Department Care Team (Late st Contact Info) Description 02/26/2017 Abstract [facility] CONVERSION [id number] [place] [address] , Generic Conversion, Social History Tobacco Use Types Packs/Day Years Used Date Smoking Tobacco: Never Assessed Comments Unknown Sex and Gender Information Value Date Recorded Sex Assigned at Not on file Legal Sex Female 1:58 PM CDT Gender Identity Not on file Sexual Orientation Not on file documented as of this encounter Plan of Treatment Not on file documented as of this encounter Procedures Procedure Name Priority Date/Time Associated Diagnosis Comments PARTIAL THROMBOPLASTIN TIME,PTT STAT 02/26/2017 2:39 PM CDT PROTHROMBIN TIME, VENOUS STAT 02/26/2017 2:39 PM CDT COMPREHENSIVE METABOLIC PANEL STAT 02/26/2017 2:39 PM CDT CBC W/DIFF AUTOMATED STAT 02/26/2017 2:39 PM CDT documented in this encounter Results * PARTIAL THROMBOPLASTIN TIME,PTT (02/26/2017 2:39 PM CDT) PTT 27.1 27.0 - 36.8 SEC 02/26/2017 2:58 PM CDT [facility] PLASMA SPECIMEN / Unknown 02/26/2017 2:39 PM CDT 02/26/2017 2:41 PM CDT Generic Conversion [facility] Final R esult Performing Organization Address [facility]/ZIP Co de Phone Number [facility] [address] [place] [address], [place] [phone] * PROTIME/INR, VENOUS (02/26/2017 2:39 PM CDT) PROTIME 12.3 SEC 02/26/2017 2:58 PM CDT [facility] INR 1.0 02/26/2017 2:58 PM CDT [facility] Comment: Recommend INR ranges for Oral Anticoagulant Therapy:Mechanical Cardiac Values 2.5-3.5All others indication 2.0-3.0 02/26/2017 2:39 PM CDT 02/26/2017 2:41 PM CDT us Generic Conversion [facility] Final R esult Performing Organization Address [facility]/ZIP Co de Phone Number [facility] [address] [place] [address], [place] [phone] * (ABNORMAL) COMPREHENSIVE METABOLIC PANEL (02/26/2017 2:39 PM CDT) GLUCOSE 106(H) 70 - 105 MG/DL 02/26/2017 3:04 PM CDT [facility] BUN 17 9.8 - 20.1 MG/DL 02/26/2017 3:04 PM CDT [facility] CREATININE S/P/B 0.76 0.57 - 1.11 MG/DL 02/26/2017 3:04 PM CDT [facility] SODIUM S/P/B 139 136 - 145 MMOL/L 02/26/2017 3:04 PM CDT [facility] POTASSIUM S/P/B 3.7 3.5 - 5.1 MMOL/L 02/26/2017 3:04 PM CDT [facility] CHLORIDE S/P/B 104 98 - 107 MMOL/L 02/26/2017 3:04 PM [facility] CO2 27.0 22 - 29 MMOL/L 02/26/2017 3:04 PM [facility] ANION GAP 11.7 10.0 - 24.0 MMOL/L 02/26/2017 3:04 PM [facility] OSMOLALITY (CALC) 280 271 - 290 MOSM/KG 02/26/2017 3:04 PM [facility] CALCIUM S/P/B 9.4 8.4 - 10.2 MG/DL 02/26/2017 3:04 PM [facility] BILIRUBIN TOTAL S/P/B 0.7 0.2 - 1.2 MG/DL 02/26/2017 3:04 PM [facility] TOTAL PROTEIN S/P/B 7.4 6.4 - 8.3 G/DL 02/26/2017 3:04 PM [facility] ALBUMIN S/P/B 4.3 3.5 - 5.0 G/DL 02/26/2017 3:04 PM [facility] AST 22 5 - 34 U/L 02/26/2017 3:04 PM [facility] ALT 18 6 - 55 U/L 02/26/2017 3:04 PM [facility] ALKALINE PHOSPHATASE S/P/B 58 30 - 130 U/L 02/26/2017 3:04 PM [facility] BUN CREATININE RATIO 22.4 6.0 - 26.0 02/26/2017 3:04 PM [facility] A/G RATIO 1.4 1.1 - 1.9 RATIO 02/26/2017 3:04 PM [facility] EGFR NON-AFR. AMER. >60 >60 ML/MIN/1.7 3 M2 02/26/2017 3:04 PM CDT [facility] Comment: GFR Reference Range:Kidney Failure - <15mL/min Chronic Kidney Disease - <60mL/min Normal Kidney Function - >60mL/min GFR calculation is not recommended forPatients less than 18 years or greater than70 years as per the national Kidney Foundation.If the patient is -Armenian, multiply results by 1.21 02/26/2017 2:39 PM CDT 02/26/2017 2:41 PM CDT us Generic Conversion [facility] Final R esult [facility] [address] [place] [address], * (ABNORMAL) CBC W/DIFF AUTOMATED (02/26/2017 2:39 PM CDT) WBC 6.9 4.4 - 11.0 x10'3/uL 02/26/2017 2:49 PM CDT [facility] RBC 4.85 4.50 - 5.10 x10'6/uL 02/26/2017 2:49 PM CDT [facility] HGB 14.1 12.3 - 15.3 G/DL 02/26/2017 2:49 PM CDT [facility] HCT 40.5 35.9 - 44.6 % 02/26/2017 2:49 PM CDT [facility] MCV 83.5 80.0 - 96.0 FL 02/26/2017 2:49 PM CDT [facility] MCH 29.1 25.3 - 30.9 PG 02/26/2017 2:49 PM CDT [facility] MCHC 34.8(H) 31.0 - 34.1 G/DL 02/26/2017 2:49 PM CDT [facility] RDW 12.5 12.4 - 15.1 % 02/26/2017 2:49 PM T [facility] PLT 169 151 - 353 x10'3/uL 02/26/2017 2:49 PM [facility] MPV 9.4(L) 9.6 - 12.0 FL 02/26/2017 2:49 PM T [facility] RBC MORPHOLOGY NORMAL 02/26/2017 2:49 PM [facility] PLT MORPH. NORMAL 02/26/2017 2:49 PM [facility] WBC MORPHOLOGY NORMAL 02/26/2017 2:49 PM [facility] LYMPHOCYTES % 40.0 15.8 - 45.0 % 02/26/2017 2:49 PM [facility] NEUTROPHILS % 52.9 42.1 - 71.9 % 02/26/2017 2:49 PM [facility] MONOCYTES % 4.8(L) 5.7 - 12.5 % 02/26/2017 2:49 PM [facility] EOSINOPHILS 1.3 0.0 - 5.6 % 02/26/2017 2:49 PM [facility] BASOPHILS 0.1 0.0 - 1.3 % 02/26/2017 2:49 PM [facility] ABS. NEUTROPHILS TOTAL 3.66 1.40 - 6.00 x10'3/uL 02/26/2017 2:49 PM [facility] IMMATURE GRANS % 0.9(H) 0.0 - 0.5 % 02/26/2017 2:49 PM [facility] ABS. LYMPHOCYTES 2.77 0.80 - 4.70 x10'3/uL 02/26/2017 2:49 PM [facility] 02/26/2017 2:39 PM CDT 02/26/2017 2:41 PM CDT us Generic Conversion [facility] Final R esult [facility] [address] [place] [address], [place] [phone] documented in this encounter Visit Diagnoses Not on filedocumented in this encounter
== END 2025-03-07 14:40 | disposition home or self-care (01) ==
LOC: ANHFOHIMG 14:40
PROVIDERS: PCP Internal Medicine; Visit Provider Nurse Practitioner
DX: M81.0 Age-related osteoporosis without current pathological fracture (principal); M85.88 Other specified disorders of bone density and structure, other site; Z78.0 Asymptomatic menopausal state
CPT/HCPCS: 77080